=== PATIENT | male | born 1990 | race Caucasian/White ===

== ENCOUNTER 2021-01-18 20:09 | Emergency (ER) | payer SELFPAY ==
[2021-01-18 20:12] VITALS: BP 156/99; PULSE 98; RESP 15; O2SAT 93; BMI 47.5
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
[2021-01-18] MEDS: iohexol 300 mg/mL 100 mL Btl IV (20:49)
[2021-01-18 21:10] LABS: Basophils # 0.1 10^3/uL (0.0-0.1); Basophils % 0.6 %; Eosinophils # 0.1 10^3/uL (0.0-0.8); Eosinophils % 0.5 %; Hematocrit 48.6 % (42.0-52.0); Hemoglobin 15.9 g/dL (11.7-16.6); Lymphocytes # 1.6 10^3/uL (0.8-4.8); Lymphocytes % 10.9 %; Mean Corpuscular HGB Conc 32.7 g/dL (30.0-36.0); Mean Corpuscular Hemoglobin 28.7 pg (28.0-34.0); Mean Corpuscular Volume 87.7 fL (80-94); Mean Platelet Volume 10.3 fL (7.4-10.4); Monocytes # 0.6 10^3/uL (0.2-0.9); Monocytes % 4.1 %; Neutrophils # 12.31 10^3/uL (1.8-7.7); Neutrophils % 83.4 %; Nucleated Red Blood Cells % 0 %; Platelet Count 230 10^3/cmm (130-400); Red Blood Count 5.54 10^6/uL (4.1-5.3); Red Cell Distribution Width 12.9 % (12.1-15.1); White Blood Count 14.8 10^3/uL (4.0-10.0)
[2021-01-18 21:26] LABS: Alanine Aminotransferase 34 U/L (0-41); Albumin Level 4.1 g/dL (3.5-5.2); Alcohol Level 85 mg/dL (0-10); Alkaline Phosphatase 92 IU/L (40-130); Aspartate Amino Transferase 22 U/L (0-40); Blood Urea Nitrogen 11 mg/dL (6-20); Calcium 8.5 mg/dL (8.5-10.5); Carbon Dioxide 22 mmol/L (22-29); Chloride 103 mmol/L (98-107); Creatine Phosphokinase 159 U/L (39-308); Globulin 2.5 g/dL (1.3-4.6); Glomerular Filtration Rate 155.2 mL/min (90-130); Glucose 106 mg/dL (65-115); Osmolality Calculated 288 mOsm/kg (285-295); Sodium 139 mmol/L (136-145); Total Bilirubin 0.4 mg/dL (0.15-1.2); Total Protein 6.6 g/dL (6.6-8.7)
[2021-01-18 21:29] LABS: Lactate (Lactic Acid level) 2.4 mmol/L (0.5-2.2)
[2021-01-18 21:45] LABS: Anion Gap 17.7 (5-19); Potassium 3.7 mmol/L (3.5-5.1)
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
[2021-01-18] MEDS: tetanus-dipt-pertussis 0.5 mL SDV IM (23:22)
[2021-01-18] MEDS: cephALEXin 500 mg Capsule PO (23:27)
[2021-01-18] MEDS: HYDROcodone-acetaminophen 5-325 mg Tablet 1 TAB PO (23:27)
[2021-01-19 00:40] VITALS: BP 140/82; PULSE 80; RESP 16; TEMP 36.6; O2SAT 98
== END 2021-01-18 23:30 | disposition home or self-care (01) ==
PROVIDERS: Emergency Provider Family Medicine
DX: S06.0X9A Concussion with loss of consciousness of unspecified duration, initial encounter (principal); S01.01XA Laceration without foreign body of scalp, initial encounter; V86.55XA Driver of 3- or 4- wheeled all-terrain vehicle (ATV) injured in nontraffic accident, initial encounter; Z23 Encounter for immunization
CPT/HCPCS: 12002; 70450; 71260; 72125; 72128; 72131; 74177; 80053; 80307; 82550; 83605; 85025; 90471; 90715; 99283; 99291; Q9967